=== PATIENT | male | born 2000 | race Caucasian/White ===

== ENCOUNTER 2020-03-10 13:22 | Emergency (ER) | payer OTHER, SELFPAY ==
[2020-03-10 13:25] VITALS: BP 133/76; PULSE 67; RESP 14; TEMP 36.6; O2SAT 98
--- NOTE | 2020-03-10 13:45 | DI.RAD_ITS ---
EXAM: XR FOOT RT COMPLETE CLINICAL HISTORY: twisted R foot, r/o acute fx TECHNIQUE: COMPARISON: CR XR ANKLE RT COMPLETE from 03/10/2020 FINDINGS: Three views of the ankle and three views of the foot were obtained. The ankle mortise is well mainta ined. There is no evidence of acute fracture or dislocation. IMPRESSION: RADIATION DOSE DELIVERED: Total DLP
--- NOTE | 2020-03-10 13:45 | DI.RAD_ITS ---
EXAM: XR TIB/FIB RT CLINICAL HISTORY: twisted R ankle, r/o acute fx TECHNIQUE: COMPARISON: No exams were available for comparison FINDINGS: Two views were obtained. No fracture is seen. IMPRESSION: RADIATION DOSE DELIVERED: Total DLP
--- NOTE | 2020-03-10 13:56 | W.ED.GENAD ---
Discharge Plan Disposition Patient Disposition: HOME Condition: Stable Discharge Details Clinical Impression: Sprain of ankle, right Primary Care Provider: Unknown,Unknown ED Provider: Malia Barraza Home Meds and New Rx's Prescriptions: Continued montelukast [Singulair] 10 mg Tablet 10 mg PO DAILY RF: 0 Breo Ellipta 100-25 mcg/dose Blister With Device 1 inh INHALATION HS RF: 0 Discharge Instructions Instructions: Ankle Sprain (ED) Additional Instructions: Rest, ice, and elevate the affected area as much as possible. Alternate tylenol and motrin as needed and directed for pain. Follow-up with your primary care doctor in 1 week. Return to the emergency department with any worsening or new concerning symptoms. Discharge Data Discharge Date/Time-TO BE ENTERED AT DEPARTURE: 03/10/20 15:43 Discharge Physician: Malia Barraza Medical Decision Making 19yo M presents with right ankle and foot pain after twisted his ankle while hiking a few days ago. He has tenderness to palpation right proximal fibula, dorsal foot and lateral malleolus with ecchymosis inferior to lateral malleolus. Neurovascular intact. No deformity Patient given a dose of ibuprofen and referred for right ankle, foot and tib-fib x-rays which were negative. Patient was given a new size appropriate walking boot. He declined crutches. Advised to follow up with the primary care doctor for re-evaluation. Usual and customary return precautions given prior to discharge. Imaging Data Radiologic Study: Radiologist's impression: XR FOOT RT COMPLETE CLINICAL HISTORY: twisted R foot, r/o acute fx TECHNIQUE: COMPARISON: CR XR ANKLE RT COMPLETE from 03/10/2020 FINDINGS: Three views of the ankle and three views of the foot were obtained. The ankle mortise is well maintained. There is no evidence of acute fracture or dislocation. XR TIB/FIB RT CLINICAL HISTORY: twisted R ankle, r/o acute fx TECHNIQUE: COMPARISON: No exams were available for comparison FINDINGS: Two views were obtained. No fracture is seen. HPI General Mode of arrival: ambulatory. Date/Time Provider Initiated Documentation: 03/10/20 13:23. Limitations to Documentation: no limitations. Information obtained by: patient. HPI Narrative: Patient is a 19-year-old male who presents with right ankle injury after twisting his ankle 5 days ago while walking. Pt used a walking boot from his sister while ambulating with some relief. Related Data Home Medications Medication Instructions Recorded Confirmed Allen Higuerata 1 inh INHALATION HS 03/10/20 03/10/20 montelukast [Singulair] 10 mg PO DAILY 03/10/20 03/10/20 Allergies Allergy/AdvReac Type Severity Reaction Status Date / Time tree nuts AdvReac Mild stomach Uncoded 03/10/20 13:31 ache General Stated Complaint: Orthopedic AGUSTINA: 4 Review of Systems All systems reviewed & are unremarkable except as noted in HPI and below Constitutional Constitutional: Reports as per HPI, Denies chills and Denies fever(s) Eyes Eyes: Denies blurry vision ENT Ears, Nose, Mouth, and Throat: Denies dizziness, Denies sore throat and Denies throat swelling Cardiovascular Cardiovascular: Denies chest pain and Denies dyspnea Respiratory Respiratory: Denies cough and Denies dyspnea Gastrointestinal Gastrointestinal: Denies abdominal pain, Denies diarrhea and Denies vomiting Genitourinary Genitourinary: Denies hematuria and Denies dysuria Musculoskeletal Musculoskeletal: Denies back pain and Denies numbness Integumentary/Breasts Skin/Breast: Denies lesions and Denies rash Neurologic Neurologic: Denies dizziness, Denies localized weakness and Denies numbness Allergic/Immunologic Allergic/Immunologic: Denies throat swelling [facility] Medical History (Updated 03/10/20 @ 15:23 by Malia Barraza DO) Asthma Social History Smoking/Tobacco Use Status: Never Alcohol Intake: current Alcohol Intake frequency: a few times a week Drug use: Never Do you feel safe at home: Yes Do you feel safe in your relationship?: Yes Exam Const General: cooperative, healthy appearing and no acute distress [facility] Head: normal to inspection Mouth: oral mucosae normal Eyes General: appearance normal, both eyes and all related structures Neck Neck: normal visual inspection Resp Effort & Inspection: normal respiratory effort and able to speak in complete sentences Cardio Rate: regular rate Skin General skin exam: no rashes or lesions noted Neuro General: patient alert, patient awake and patient oriented x3 Motor: muscle tone normal throughout Extrem Ankle/foot/toe images: 1. Ecchymosis. Other: Tenderness to palpation of right proximal fibula, right lateral malleolus and dorsum of right foot mainly mid and distal. No right medial malleolus tenderness. Right DP/PT pulses intact. No deformity. Psych Appearance: grossly normal Affect: normal affect Course Vital Signs Vital signs: Vital Signs Temperature 97.9 F 03/10/20 13:25 Pulse 67 03/10/20 13:25 Respiratory Rate 14 03/10/20 13:25 Blood Pressure 133/76 03/10/20 13:25 Pulse Oximetry 98 03/10/20 13:25 Temperature 97.9 F 03/10/20 13:25 Temperature Source Skin 03/10/20 13:25 Pulse 67 03/10/20 13:25 Respiratory Rate 14 03/10/20 13:25 Respiratory Effort 03/10/20 13:32 Blood Pressure 133/76 03/10/20 13:25 Blood Pressure Position Sitting 03/10/20 13:25 Pulse Oximetry 98 03/10/20 13:25 Oxygen Delivery Method Room Air 03/10/20 13:25 Oxygen Flow Rate 0 03/10/20 13:25 Pain Level 4 03/10/20 13:39 Comment 03/10/20 13:25
[2020-03-10] MEDS: Ibuprofen 600 MG TAB PO (14:26)
== END 2020-03-10 15:43 | disposition home or self-care (01) ==
PROVIDERS: Emergency Provider Physician Assistant
DX: S93.401A Sprain of unspecified ligament of right ankle, initial encounter (principal); X50.9XXA Other and unspecified overexertion or strenuous movements or postures, initial encounter; Y93.01 Activity, walking, marching and hiking
CPT/HCPCS: 99284; 73590; 73610; 73630; 99283; L4361